=== PATIENT | female | born 1970 | race American Indian/Alaskan Native ===

== ENCOUNTER 2017-04-12 18:56 | Emergency (ER) | payer OTHER ==
[2017-04-12 19:03] VITALS: BP 136/95
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
--- NOTE | 2017-04-12 21:00 | XRay Report ---
FINAL REPORT PROCEDURE: Lumbar spine. TECHNIQUE: Three views. HISTORY: Back pain. COMPARISON: No prior studies are available for comparison. FINDINGS: The lumbar vertebrae have normal height and satisfactory alignment. There are no fractures. There is no spondylolisthesis. There is mild disc space narrowing at L5-S1. The sacrum and sacroiliac joints appear normal. IMPRESSION: Mild degenerative disc disease at L5-S1.
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
== END 2017-04-12 22:09 | disposition home or self-care (01) ==
LOC: ED 18:56
DX: S46.811A Strain of other muscles, fascia and tendons at shoulder and upper arm level, right arm, initial encounter (principal); M54.5 Low back pain; V49.49XA Driver injured in collision with other motor vehicles in traffic accident, initial encounter; Y93.89 Activity, other specified; Y92.89 Other specified places as the place of occurrence of the external cause; Y99.8 Other external cause status
CPT/HCPCS: 72100; 99283

== ENCOUNTER 2019-04-06 08:39 | Observation (INO) | payer OTHER ==
[2019-04-06] MEDS ORDERED: DEXTROSE 50% IN WATER (25GM) 50 ML SYRINGE IV ONE ×2 (09:11→09:12)
[2019-04-06 11:14] LABS: Alanine Aminotransferase 43 units/L (7-56); Albumin 3.9 g/dL (3.9-5)
[2019-04-06 11:25] LABS: Bilirubin,Direct < 0.2 mg/dL (0-0.2)
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
[2019-04-06 12:27] LABS: BUN/Creatinine Ratio 11; Blood Urea Nitrogen 8 mg/dL (7-17); Calcium 8.7 mg/dL (8.4-10.2); Hemolysis Index 219
[2019-04-06 13:09] LABS: Hematocrit 35.1 % (30.3-42.9); Hemoglobin 11.3 gm/dl (10.1-14.3); Mean Corpuscular Volume 85 fl (79-97); Red Blood Count 4.14 M/mm3 (3.65-5.03)
[2019-04-06 13:10] LABS: Basophils % (Auto) 1.5 % (0.0-1.8); Lymphocytes # (Auto) 1.6 K/mm3 (1.2-5.4); Lymphocytes % (Auto) 29.3 % (13.4-35.0); Mean Corpuscular HGB Conc 32 % (30-34); Monocytes % (Auto) 9.8 % (0.0-7.3); Platelet Count 302 K/mm3 (140-440); Red Cell Distribution Width 16.8 % (13.2-15.2)
[2019-04-06 13:11] LABS: Basophils # (Auto) 0.1 K/mm3 (0.0-0.1); Monocytes # (Auto) 0.5 K/mm3 (0.0-0.8)
[2019-04-06] MEDS ORDERED: SODIUM CHLORIDE 0.9% 1000 ML 1,000 ML IV ONE (13:17)
[2019-04-06] MEDS ORDERED: cefTRIAXone/NS 1 GM/50 ML 1 GM/50 ML BAG IV ONE (13:18)
[2019-04-06] MEDS ORDERED: SODIUM BICARB 8.4% 50 MEQ/50 ML SYRINGE IV ONE (13:40)
[2019-04-06] MEDS ORDERED: ASPIRIN 325 MG TAB PO ONE (13:40)
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
[2019-04-06] MEDS ORDERED: D5W/0.9% NACL 1,000 ML IV SCH (17:00)
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
[2019-04-06] MEDS ORDERED: METOCLOPRAMIDE 10 MG/2 ML INJ IV PRN (23:05)
[2019-04-06] MEDS ORDERED: HYDROmorphone 1 MG/1 ML INJ IV PRN (23:05)
[2019-04-06] MEDS ORDERED: ONDANSETRON 4 MG/2 ML INJ IV PRN (23:05)
[2019-04-06] MEDS ORDERED: oxyCODONE /ACETAMINOPHEN 5-325MG TAB PO PRN (23:05)
[2019-04-06] MEDS ORDERED: ACETAMINOPHEN 325 MG TAB PO PRN (23:05)
[2019-04-07] MEDS: FAMOTIDINE 20 MG TAB PO SCH ×2 (00:52→09:38)
[2019-04-07 05:49] LABS: Basophils # (Auto) 0.1 K/mm3 (0.0-0.1); Basophils % (Auto) 1.8 % (0.0-1.8); Eosinophils # (Auto) 0.1 K/mm3 (0.0-0.4); Eosinophils % (Auto) 1.1 % (0.0-4.3); Hematocrit 30.6 % (30.3-42.9); Hemoglobin 10.4 gm/dl (10.1-14.3); Lymphocytes # (Auto) 1.5 K/mm3 (1.2-5.4); Lymphocytes % (Auto) 29.6 % (13.4-35.0); Mean Corpuscular HGB Conc 34 % (30-34); Mean Corpuscular Volume 84 fl (79-97); Monocytes # (Auto) 0.6 K/mm3 (0.0-0.8); Monocytes % (Auto) 11.9 % (0.0-7.3); Platelet Count 290 K/mm3 (140-440); Red Blood Count 3.62 M/mm3 (3.65-5.03); Red Cell Distribution Width 16.7 % (13.2-15.2)
[2019-04-07 06:08] LABS: Alanine Aminotransferase 32 units/L (7-56); Albumin 3.2 g/dL (3.9-5); BUN/Creatinine Ratio 10; Blood Urea Nitrogen 7 mg/dL (7-17); Calcium 8.3 mg/dL (8.4-10.2); Hemolysis Index 34
[2019-04-07] MEDS ORDERED: HEPARIN 5,000 UNIT/1 ML VIAL SUB-Q SCH (10:00)
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
[2019-04-07 13:04] VITALS: BP 148/88
== END 2019-04-07 12:30 | disposition home or self-care (01) ==
LOC: ED 08:39 → 3A 13:41
PROVIDERS: ADMIT Internal Medicine; ATTEND Internal Medicine
DX: E11.649 Type 2 diabetes mellitus with hypoglycemia without coma (principal); R79.89 Other specified abnormal findings of blood chemistry; E87.5 Hyperkalemia; R55 Syncope and collapse; I10 Essential (primary) hypertension; V47.5XXA Car driver injured in collision with fixed or stationary object in traffic accident, initial encounter; Y93.89 Activity, other specified; Y92.410 Unspecified street and highway as the place of occurrence of the external cause
CPT/HCPCS: 36415; 71045; 80048; 80053; 80076; 82140; 82962; 83036; 83735; 85025; 87040; 93005; 93010; 96365; 96372; 96375; 99285; G0378; J0696; J1644; J7030; J7042